=== PATIENT | male | born 1945 | race Caucasian/White ===

== ENCOUNTER → 2024-03-10 11:41 | Outpatient (REF) | payer OTHER, SELFPAY | LOC: HWRAD 11:41 | PROVIDERS: ATTENDING PHYSICIAN Surgery; FAMILY PHYSICIAN Internal Medicine Geriatric Medicine | DX: R10.31 Right lower quadrant pain (principal) | CPT/HCPCS: 72193; Q9967 ==

== ENCOUNTER 2025-02-02 16:06 | Emergency (ER) | payer OTHER, SELFPAY ==
[2025-02-02] VITALS (7 sets, daily range): BP systolic 111–153; BP diastolic 57–75
[2025-02-02 16:42] LABS: % Basophils 0.7 % (0-2); % Immature Granulocytes 0.3 % (0-0.5); % Lymphocytes 15.9 % (20.5-51.1); % Monocytes 9.3 % (1.7-9.3); % Neutrophils 72.8 % (42.2-75.2); Absolute Basophils 0.1 10^3/uL (0-0.2); Absolute Eosinophils 0.1 10^3/uL (0-0.7); Absolute Lymphocytes 1.1 10^3/uL (1.2-3.4); Absolute Monocytes 0.6 10^3/uL (0.1-0.6); Hematocrit 42.5 % (39.0-52.0); Hemoglobin 14.6 g/dL (13.0-18.0); Mean Corp Hgb Conc. 34.4 g/dL (33.0-37.0); Mean Corpuscular Hgb 35.4 pg (27.0-31.0); Mean Corpuscular Volume 102.9 fL (80.0-94.0); Mean Platelet Volume 8.6 fL (7.4-10.4); Nucleated Red Blood Cells % 0 % (-); Platelet Count 180 10^3/uL (130-400); Red Blood Cell Count 4.13 10^6/uL (4.70-6.10); Red Cell Dist. Width 12.4 % (11.5-14.5); White Blood Cell Count 6.9 10^3/uL (4.8-10.8)
[2025-02-02 16:56] LABS: ALT (SGPT) 16 U/L (0-50); AST (SGOT) 17 U/L (17-59); Albumin 3.7 g/dl (3.5-5.0); Alkaline Phosphatase 73 U/L (38-126); Blood Urea Nitrogen 22 mg/dl (9-20); Calcium 9.2 mg/dl (8.4-10.2); Carbon Dioxide 31 mmol/L (22-30); Chloride 105 mmol/L (98-107); Glucose 116 mg/dl (70-99); Potassium 4.3 mmol/L (3.5-5.1); Sodium 139 mmol/L (135-145); Total Bilirubin 0.9 mg/dl (0.2-1.3); eGFR > 60.00
[2025-02-02 17:08] LABS: Troponin I < 0.012 ng/ml
--- NOTE | 2025-02-02 19:01 | ED.GENMED ---
History of Present Illness
General
Chief Complaint: Change in Mental Status
Time Seen by Provider: 02/02/25 19:01
History of Present Illness
History of Present Illness:
TIME OF INITIAL ENCOUNTER: 7 PM
HPI: Patient came in by ambulance from [facility]. He was sleeping but then had an episode at the table where he became 'completely unresponsive'. He was unable to be aroused initially. However, by the time EMS arrived, he was back to
baseline. states he had a similar episode 3 months ago and was admitted at another hospital and also had a change in mental status that persisted. He has been diagnosed with dementia. There has been no trauma. He is taking a topical
treatment for prophylaxis against skin cancer leading to marked skin changes to the left side of the face.
EXAM:
GENERAL: Appears in no distress
HEENT: Moist oral mucosa
CARDIOVASCULAR: Regular rate and rhythm
PULMONARY: No respiratory distress, breathing is nonlabored, equal and clear breath sounds
ABDOMEN: Soft and nontender with no peritoneal signs
NEUROLOGIC: The patient has evidence of dementia, not oriented to month or place, strength is equal in all extremities, the patient follow simple commands
EXTREMITIES: Moves all extremities equally, no tenderness, no edema
PYSCHIATRIC: Very limited historian, poor insight and judgment
SKIN: Desquamation of various stages which is markedly noticeable to the left side of the face
NUMBER AND COMPLEXITY OF PROBLEMS ADDRESSED AT THE ENCOUNTER
� Chronic conditions affecting care: Dementia, high blood pressure, diverticular disease, skin cancer
� Acute Exacerbation and/or Progression of Chronic Illness: This is an acute problem
� Differential Diagnosis includes: Progression of dementia, dysrhythmia, hypoglycemia, infectious etiology, intracranial pathology, dehydration
AMOUNT AND/OR COMPLEXITY OF DATA TO BE REVIEWED AND ANALYZED
� I performed an independent evaluation of and my interpretation is:
EKG: Sinus 60, leftward axis deviation, RSR' pattern, nonspecific ST abnormality
CT: CT head shows chronic degenerative changes but no acute abnormality
X-rays:
Laboratory Studies: White count and hemoglobin are normal, bicarb 31, creatinine, troponin less than 0.012
Other:
� Review of other/old records: I reviewed records, the patient was admitted here in 2022 with abdominal pain
� Clinical information was obtained by an independent historian: I spoke to the at bedside
� Prescriptions/Medications Considered but not given:
� Further testing considered but not performed:
RISK OF COMPLICATIONS AND/OR MORBIDITY OR MORTALITY OF PATIENT MANAGEMENT
� Social determinants of health affecting care: Lives in [place] with his , the is considering having him placed into residential/memory care
� Discussion with other providers:
� Escalation of care including admission/observation vs risk of discharge considered: The patient is currently back to his baseline mental status. He does have a history of dementia and cannot provide any meaningful history.
Therefore given his advanced age, CT imaging of the brain is obtained. Basic blood work is relatively unremarkable. Urinalysis does not show any sign of infection.
ANY OTHER UPDATES:
Phy Exam
Physical Exam
Physical Exam:
See HPI
Course
Orders/Labs/Results
Orders:
Orders
02/02/25 16:15
Electrocardiogram (*1) Urgent
Reason for Study: Fatigue / Weakness
02/02/25 16:16
EKG- Treatment ONCE
02/02/25 16:24
CMP [Comprehensive Metabolic Panel] Urgent
Complete Blood Count/With Diff Urgent
Troponin I Urgent
02/02/25 19:09
Urine Microscopic Reflex Cult Urgent
Urine Reflex Culture from UA [Urinalysis Reflex To Culture] Urgent
Date Specimen was Collected: 02/02/25
Time Specimen was Collected: 19:07
Urine Culture Urgent
PHYLLIS Source: U
Specimen Description:
Date Specimen was Collected: 02/02/25
Time Specimen was Collected: 19:07
02/02/25 19:12
CT Head W/o Iv Contrast Urgent
Comment:
Reason For Exam: unresponsive episode; dementia
0.9% Sodium Chloride 500 ml [Nss] 500 ml IV BOLUS
Abnormal Lab Results
02/02/25 02/02/25
16:24 19:09
RBC 4.13 L 10^6/uL
(4.70-6.10)
MCV 102.9 H fL
(80.0-94.0)
MCH 35.4 H pg
(27.0-31.0)
Absolute Lymphs (auto) 1.1 L 10^3/uL
(1.2-3.4)
Lymphocytes % 15.9 L %
(20.5-51.1)
Carbon Dioxide 31 H mmol/L
(22-30)
BUN 22 H mg/dl
(9-20)
Glucose 116 H mg/dl
(70-99)
Total Protein 6.0 L g/dl
(6.3-8.2)
Ur Occult Blood Reflex 2+ A
(Negative)
Leukocyte Esterase Rfl 1+ A
(Negative)
Urine Bacteria (Reflex) Few A
(Negative)
Urine Albumin (Reflex) 2+ A
(Neg - Trace)
02/02/25 16:24
02/02/25 16:24
Vital Signs
Initial and Last Documented VS:
Initial Vital Signs
Pulse Resp BP Pulse Ox
61 18 117/62 98
02/02/25 16:13 02/02/25 16:13 02/02/25 16:13 02/02/25 16:13
Last Documented Vital Signs
Temp Pulse Resp BP Pulse Ox
36.4 C 64 12 149/72 97
02/02/25 16:14 02/02/25 21:30 02/02/25 21:30 02/02/25 21:19 02/02/25 21:30
*Critical Care Note
Total Time (30-74mins, 75-104mins- exclusive of procedures): Not Applicable
ED Attending Note
-
Portions of this chart may have been created with voice recognition software.� Occasional wrong word or��sound alike� substitutions may have occurred due to the inherent limitations of voice recognition software.
Discharge Plan
Departure
Patient Disposition: Home (Routine Discharge)
Date of Disposition: 02/02/25
Time of Disposition: 21:35
Patient with high blood pressure during this ER visit?: Yes
Discharge Problem:
Syncope and collapse
Instructions: Altered Mental Status (DC), BLOOD PRESSURE
Prescriptions:
No Action
rivastigmine tartrate 1.5 mg Capsule
1.5 mg PO BID
primidone 50 mg Tablet
50 mg PO HS
atorvastatin 20 mg Tablet
20 mg PO DAILY
acetaminophen 500 mg Tablet
1,000 mg PO Q6H PRN (Reason: pain)
tamsulosin 0.4 mg Capsule
0.4 mg PO DAILY
venlafaxine 37.5 mg Tablet
37.5 mg PO DAILY
losartan 25 mg Tablet
50 mg PO BID
azelastine 137 mcg (0.1 %) Aerosol,[place]
1 spray INTRANASAL BID PRN (Reason: headaches)
finasteride 5 mg Tablet
5 mg PO DAILY
memantine 10 mg Tablet
10 mg PO BID
gabapentin 300 mg Tablet Extended Release 24 Hr
300 mg PO TID
aspirin 81 mg Capsule
81 mg PO DAILY
vitamin F48-anymg acid
1 tab PO DAILY
naproxen sodium [Aleve] 220 mg Tablet
220 mg PO Q8H PRN (Reason: pain)
peppermint oil Capsule,Delayed Release(Dr/Ec)
1 cap PO DAILY
docusate sodium [Colace] 100 mg Capsule
100 mg PO DAILY
tramadol 50 mg tablet
25 mg PO Q6HPRN PRN (Reason: severe pain/breakthrough pain) Qty: 12 0RF
cetirizine 10 mg Tablet
10 mg PO DAILY
cholecalciferol (vitamin D3) [Vitamin D3] 50 mcg (2,000 unit) Tablet
50 mcg PO DAILY
oxycodone 5 mg tablet
5 mg PO Q6HPRN PRN (Reason: breakthrough/severe pain) Qty: 20 0RF
Referrals:
Beulah Marti MD [Family Provider] -
Activity Restrictions/Additional Instructions:
The cause of what happened earlier today is unclear. The white blood cell count and hemoglobin levels are normal. Chemistry levels are unremarkable. Cardiac blood work is normal. EKG shows a normal rhythm. There is no clear sign of a urinary
tract infection. CAT scan shows no acute abnormality but does show findings consistent with dementia. Return here if worse or other concerns.
Interventions
Interventions:
*Risk Screen - Suicide Last Done: 02/02/25 18:24
*General Assessment Last Done: 02/02/25 16:14
*Neglect/Abuse Screening Last Done: 02/02/25 18:24
*ED- Fall Risk Assessment Last Done: 02/02/25 18:09
*ED COVID-19 Vaccine History Last Done: 02/02/25 16:14
*Nursing Disposition Last Done: 02/02/25 21:50
ED- Neurological Assessment Last Done: 02/02/25 16:14
ED- Cardiac Assessment Last Done: 02/02/25 18:10
ED Swallowing Screen Last Done: 02/02/25 17:54
Discharge Date and Time
Discharge Date/Time: 02/02/25 21:50
Print Language: [place]
[2025-02-02] MEDS: NSS 500 IV (19:13)
[2025-02-02 19:23] LABS: Urine Albumin 2+ (Neg - Trace); Urine Bilirubin Negative (Negative); Urine Character Slightly Cloudy (Clear); Urine Color Yellow; Urine Glucose Negative (Negative); Urine Ketone Negative (Negative); Urine Leukocyte 1+ (Negative); Urine Nitrite Negative (Negative); Urine Occult Blood 2+ (Negative); Urine Specific Gravity 1.015 (<1.030); Urine Urobilinogen 1+ (Neg - 1+)
[2025-02-02 19:31] LABS: Urine Bacteria Few (Negative); Urine Red Blood Cell 0-2 /HPF (0-2); Urine Squamous Cell 0-2 /LPF (Few); Urine White Cell 0-2 /HPF (0-5)
== END 2025-02-02 21:50 | disposition home or self-care (01) ==
LOC: EMR 16:06
PROVIDERS: Physician Assistant Medical; EMERGENCY PHYSICIAN Emergency Medicine; FAMILY PHYSICIAN Internal Medicine Geriatric Medicine
DX: R55 Syncope and collapse (principal); F03.90 Unspecified dementia, unspecified severity, without behavioral disturbance, psychotic disturbance, mood disturbance, and anxiety; C44.90 Unspecified malignant neoplasm of skin, unspecified; Z79.899 Other long term (current) drug therapy
CPT/HCPCS: 96360; 99284; 70450; 80053; 81003; 81015; 84484; 85025; 87086; 93005